=== PATIENT | male | born 1995 | race Caucasian/White ===

== ENCOUNTER 2023-05-27 17:54 | Emergency (ER) | payer BC, SELFPAY ==
[2023-05-27 18:11] VITALS: BP 98/65; PULSE 65; RESP 16; TEMP 36.3; O2SAT 100
--- NOTE | 2023-05-27 18:19 | ED.LOWEXIN ---
HPI - Extremity Injury (Lower) General Chief Complaint: Extremity Injury, Lower Stated Complaint: Left Knee Pain Time Seen by Provider: 05/27/23 18:19 Source: patient Mode of arrival: ambulatory Limitations: no limitations History of Present Illness HPI Narrative: 27-year-old male presented for complaint of left knee pain x5 weeks. He states at the onset the knee gave out while at work and has not been to work since then. Was told he needs a release to return to work. He states the pain is significantly improved at this time and is able to ambulate without difficulty. However he is concerned he is not able to tolerate exercise or heavy lifting, which is required for his job. Has not tried to increase activity level. Currently denies pain, swelling, bruising, or deformity. Related Data Home Medications Medication Instructions Recorded Confirmed No Home Medications 05/27/23 05/27/23 Allergies Allergy/AdvReac Type Severity Reaction Status Date / Time No Known Allergies Allergy Verified 05/27/23 18:11 Review of Systems Review of Systems: CONSTITUTIONAL: Denies body aches, fever, chills EYES: Denies visual changes ENT: Denies rhinorrhea, congestion CARDIOVASCULAR: Denies chest pain, palpitations, or edema. RESPIRATORY: Denies cough or dyspnea. GASTROINTESTINAL: Denies abdominal pain, nausea, vomiting, or diarrhea. SKIN: Denies rash, itching, or wounds. MUSCULOSKELETAL: Reports left knee pain denies back pain, or myalgia. NEUROLOGIC: Denies headache, numbness, tingling, or weakness. All systems reviewed & are unremarkable except as noted in HPI and below PMFSH Comments At time of signature, I have reviewed and agree with nursing past medical, surgical, social and family history unless otherwise noted. Please see nursing chart for further information. There is no relevant family history pertinent to the presenting complaint Exam Narrative: GENERAL: Well-appearing CHEST: Speaks in full sentences. No respiratory distress. HEART: Regular rate and rhythm. Normal and equal peripheral pulses. EXTREMITIES: Patient is able to bear weight and ambulate without pain to the left knee. No bruising, erythema or warmth. The left knee is without obvious asymmetry or deformity when compared to the other knee. Patient is able to tolerate full flexion, extension, internal and external rotation. No tenderness to palpation of the patella, no effusion or ballottement. No tenderness over the infrapatellar tendon or over the proximal fibular head. No quadriceps tenderness. Distal motor and neurovascular status intact. SKIN: Warm, dry, no rash. Capillary refill less than 3 seconds. NEURO: Alert and oriented x3. PSYCH: Normal mood and affect Course Course Emergency Course: Patient is aware of diagnosis, understands and agrees to treatment plan. Anticipatory guidance given. Patient agrees to follow-up as directed and is aware of reasons to seek care at the emergency department. Portions of this record may have been created with voice recognition software Level of Care: Express Care Visit Vital Signs Vital signs: Vital Signs Temperature 97.3 F L 05/27/23 18:11 Pulse Rate 65 05/27/23 18:11 Respiratory Rate 16 05/27/23 18:11 Blood Pressure 98/65 L 05/27/23 18:11 Pulse Oximetry 100 05/27/23 18:11 Temperature 97.3 F L 05/27/23 18:11 Pulse Rate 65 05/27/23 18:11 Respiratory Rate 16 05/27/23 18:11 Blood Pressure 98/65 L 05/27/23 18:11 Pulse Oximetry 100 05/27/23 18:11 Reviewed MDM - Extremity Injury (Lower) MDM Narrative Medical decision making narrative: Discussed physical exam findings; declined imaging at this time. Pt is advised to establish with ortho for further evaluation as he states he is unsure if he can tolerate exercise or carrying packages which is required for the job. Advised supportive measures and signs/symptoms to go to the ER. Pt is appropriate for outpt [email or web address]
== END 2023-05-27 18:35 | disposition home or self-care (01) ==
PROVIDERS: Emergency Provider Nurse Practitioner Family; PCP Internal Medicine Cardiovascular Disease
DX: M25.562 Pain in left knee (principal)
CPT/HCPCS: 99212; G0463